=== PATIENT | male | born 1980 | race Hispanic/Latino ===

== ENCOUNTER → 2022-12-18 | Outpatient (CLI) | payer BC | END | disposition home or self-care (01) | LOC: RAH 12:50 | PROVIDERS: ATTEND Nurse Practitioner Family | DX: M75.81 Other shoulder lesions, right shoulder (principal); R60.0 Localized edema; M19.011 Primary osteoarthritis, right shoulder; M25.511 Pain in right shoulder | CPT/HCPCS: 73221 ==